=== PATIENT | female | born 1975 | race Caucasian/White ===

== ENCOUNTER 2018-06-14 16:24 | Emergency (ER) | payer MEDICAID, OTHER ==
[2018-06-14 16:59] LABS: PLATELET COUNT 304 10^3/uL (150-400)
[2018-06-14] MEDS ORDERED: NS 1,000 ML IV ONE (17:04)
[2018-06-14] MEDS ORDERED: LORazepam 2 MG/ML INJ IVP ONE (17:04)
--- NOTE | 2018-06-14 17:04 | EDPHY ---
H & P Stated Complaint: 1 MONTH INTERMITTENT L CHEST/ABD ARM PRESSURE Time Seen by Provider: 06/14/18 16:56 HPI/ROS: HPI: This is a 43-year-old female who presents with Chief Complaint: 1 MONTH INTERMITTENT L CHEST/ABD ARM PRESSURE Location: Left-sided neck, chest, arms Quality: Pressure Duration: 4-6 weeks Signs and Symptoms: + shortness of breath at rest, + shortness of breath on exertion, no cough, + chest pain, + palpitations, no lower extremity edema, no wheezing, no orthopnea, no paroxysmal nocturnal dyspnea, no fever, no injury/ trauma, no hemoptysis, no carpal pedal spasms Timing: Acute, intermittent episodes, worse at night when lying down Severity: Moderate Context: Patient has a history of hypothyroidism, chronic fatigue syndrome, currently on her menses, presents with complaints of left-sided neck, chest, arm pressure that is worse at night and when lying flat on her back. Patient reports that she feels that her heart races at times. Nothing makes this better or worse. She reports that she has not been taking her thyroid medication "for some time" for unknown reasons. She recently moved from [place] to [place] and this has been stressful to her. She does not use marijuana and tobacco. No recent long distance travel. No history of clotting disorders in the family. No history of cardiac disease in the family. Chest Pain is described as pressure like and nonradiating in nature. Denies diaphoresis, nausea, vomiting. Modifying Factors: None Comment: ROS: A comprehensive 10 system review of systems is otherwise negative aside from elements mentioned in the history of present illness. MEDICAL/SURGICAL/SOCIAL HISTORY: Medical history: Hypothyroidism, chronic fatigue syndrome, Currently on her menses. Surgical history: Denies Social history: Tobacco user, marijuana user. CONSTITUTIONAL: Well-developed, well-nourished, slightly anxious middle-aged white female, awake and alert, no obvious distress HEENT: Atraumatic and normocephalic, PERRL, EOMI. Nares patent; no rhinorrhea; no nasal mucosal edema. Tympanic membranes clear. Oropharynx clear, no exudate and moist pink mucosa. Airway patent. No lymphadenopathy. No meningismus. No carotid bruits. Cardiovascular: Normal S1/S2, regular rate, regular rhythm, without murmur rub or gallop. PULMONARY/CHEST: Symmetrical and nontender. Clear to auscultation bilaterally. Good air movement. No accessory muscle usage. ABDOMEN: Soft, nondistended, nontender, no rebound, no guarding, no peritoneal signs, no masses or organomegaly. No CVAT. EXTREMITIES: 2/2 pulses, strength 5/5, no deformities, no clubbing, no cyanosis or edema. NEUROLOGICAL: no focal neuro deficits. GCS 15. SKIN: Warm and dry, no erythema. no rash. Good capillary refill. Source: Patient Exam Limitations: No limitations - Personal History LMP (Females 10-55): Now Current Tetanus Diphtheria and Acellular Pertussis (TDAP): No - Medical/Surgical History Hx Asthma: No Hx Chronic Respiratory Disease: No Hx Diabetes: No Hx Cardiac Disease: No Hx Renal Disease: No Hx Cirrhosis: No Hx Alcoholism: No Hx HIV/AIDS: No Hx Splenectomy or Spleen Trauma: No Other PMH: THYROID ISSUES/CHRONIC FATIGUE - Social History Smoking Status: Current every day smoker Constitutional: Initial Vital Signs Temperature (C) 36.7 C 06/14/18 16:30 Heart Rate 94 06/14/18 16:30 Respiratory Rate 18 06/14/18 16:30 Blood Pressure 139/99 H 06/14/18 16:30 O2 Sat (%) 96 06/14/18 16:30 O2 Delivery Mode Room Air Allergies/Adverse Reactions: Penicillins Allergy (Mild, Verified 06/14/18 16:29) Rash Home Medications: Medication Instructions Recorded Nature Throid 06/14/18 Medical Decision Making - Diagnostics Imaging Results: Imaging Impressions Chest X-Ray 06/14/18 16:52 Impression: Query mild airways disease with no superimposed acute abnormality identified. ED Course/Re-evaluation: Vital signs reviewed and stable upon arrival. Placed on radiographer cardiac catheterization. IV access, laboratory studies, chest x-ray, EKG ordered 1710: EKG my read shows sinus tachycardia with a rate of 106 beats per minute with nonspecific ST changes but no acute ischemic changes, no heart block, no arrhythmias. 171: Notified by [employer] that troponin 0.00 1720: Labs reviewed. No signs of leukocytosis/anemia/platelet dysfunction/LEAH/ elevated LFTs/electrolyte imbalance/pancreatitis/VTE/uncontrolled thyroid disease. 1814: Repeat ECG ordered and my read with attending shows normal sinus rhythm with a rate of 63 beats per minute. No acute ischemic changes. No signs of pericarditis. [facility]. Discussed possibility of cardiology referral to determine if Holter monitor is needed. This patient was seen under the supervision of my secondary supervising physician. I evaluated care for this patient with attending. Discussed this patient with Dr. Blackman. Differential Diagnosis: Chest pain including but not limited to myocardial ischemia, pulmonary embolus, chest wall pain, pleural inflammation and pulmonary infectious causes. - Data Points Laboratory Results: Laboratory Results 06/14/18 16:47 06/14/18 16:47 06/14/18 06/14/18 06/14/18 16:52 16:47 16:47 WBC RBC Hgb Hct MCV MCH MCHC RDW Plt Count MPV Neut % (Auto) Lymph % (Auto) [place] % (Auto) Eos % (Auto) Baso % (Auto) Nucleat RBC Rel Count Absolute Neuts (auto) Absolute Lymphs (auto) Absolute Monos (auto) Absolute Eos (auto) Absolute Basos (auto) Absolute Nucleated RBC Immature Gran % Immature Gran # D-Dimer Sodium Potassium Chloride Carbon Dioxide Anion Gap BUN Creatinine Estimated GFR Glucose Calcium Magnesium 2.1 mg/dL mg/dL (1.6-2.3) Total Bilirubin 0.6 mg/dL mg/dL (0.1-1.4) Conjugated Bilirubin 0.4 mg/dL mg/dL (0.0-0.5) Unconjugated Bilirubin 0.2 mg/dL mg/dL (0.0-1.1) AST 23 IU/L IU/L (14-46) ALT 24 IU/L IU/L (9-52) Alkaline Phosphatase 54 IU/L IU/L (38-126) POC Troponin I 0.00 ng/mL ng/mL (0.00-0.08) Total Protein 7.1 g/dL g/dL (6.3-8.2) Albumin 4.4 g/dL g/dL (3.5-5.0) Lipase 114 IU/L IU/L (23-300) TSH 1.810 uIU/mL uIU/mL (0.465-4.680) Free T4 1.31 ng/dL ng/dL (0.59-2.19) Beta HCG, Qual NEGATIVE 02/19/19 02/19/19 02/19/19 16:47 16:47 16:47 WBC 6.23 10^3/uL 10^3/uL (3.80-9.50) RBC 4.91 10^6/uL 10^6/uL (4.18-5.33) Hgb 14.9 g/dL g/dL (12.6-16.3) Hct 44.0 % % (38.0-47.0) MCV 89.6 fL fL (81.5-99.8) MCH 30.3 pg pg (27.9-34.1) MCHC 33.9 g/dL g/dL (32.4-36.7) RDW 13.4 % % (11.5-15.2) Plt Count 304 10^3/uL 10^3/uL (150-400) MPV 10.0 fL fL (8.7-11.7) Neut % (Auto) 57.9 % % (39.3-74.2) Lymph % (Auto) 31.1 % % (15.0-45.0) [place] % (Auto) 9.5 % % (4.5-13.0) Eos % (Auto) 0.8 % % (0.6-7.6) Baso % (Auto) 0.5 % % (0.3-1.7) Nucleat RBC Rel Count 0.0 % % (0.0-0.2) Absolute Neuts (auto) 3.61 10^3/uL 10^3/uL (1.70-6.50) Absolute Lymphs (auto) 1.94 10^3/uL 10^3/uL (1.00-3.00) Absolute Monos (auto) 0.59 10^3/uL 10^3/uL (0.30-0.80) Absolute Eos (auto) 0.05 10^3/uL 10^3/uL (0.03-0.40) Absolute Basos (auto) 0.03 10^3/uL 10^3/uL (0.02-0.10) Absolute Nucleated RBC 0.00 10^3/uL 10^3/uL (0-0.01) Immature Gran % 0.2 % % (0.0-1.1) Immature Gran # 0.01 10^3/uL 10^3/uL (0.00-0.10) D-Dimer 0.41 ug/mLFEU ug/mLFEU (0.00-0.50) Sodium 135 mEq/L mEq/L (135-145) Potassium 3.8 mEq/L mEq/L (3.5-5.2) Chloride 107 mEq/L mEq/L (97-110) Carbon Dioxide 20 mEq/l L mEq/l (22-31) Anion Gap 8 mEq/L mEq/L (6-14) BUN 17 mg/dL mg/dL (7-23) Creatinine 0.6 mg/dL mg/dL (0.6-1.0) Estimated GFR > 60 Glucose 117 mg/dL H mg/dL (70-100) Calcium 9.4 mg/dL mg/dL (8.5-10.4) Magnesium Total Bilirubin Conjugated Bilirubin Unconjugated Bilirubin AST ALT Alkaline Phosphatase POC Troponin I Total Protein Albumin Lipase TSH Free T4 Beta HCG, Qual Medications Given: Discontinued Medications Sodium Chloride (Ns) 1,000 mls @ 0 mls/hr IV EDNOW ONE; Wide Open PRN Reason: Protocol Stop: 06/14/18 17:05 Last Admin: 06/14/18 17:14 Dose: 1,000 mls Lorazepam (Ativan Injection) 0.5 mg IVP EDNOW ONE Stop: 06/14/18 17:05 Last Admin: 06/14/18 17:14 Dose: 0.5 mg Point of Care Test Results: Chemistry 06/14/18 16:52 POC Troponin I 0.00 ng/mL ng/mL (0.00-0.08) Departure - Departure Disposition: Home, Routine, Self-Care Clinical Impression: Heart palpitations Condition: Good Instructions: Heart Palpitations (ED) Additional Instructions: Consume a minimum of 8-10 glasses of water or electrolyte fluid replacement drinks that include Gatorade, Powerade, Pedialyte. Refrain from drinking caffeine and smoking marijuana or tobacco as these can make your symptoms worse. Establish care at the [facility] and evaluate if Holter monitor/cardiology is needed. Take thyroid medicine as prescribed. Referrals: [facility],. [Clinic] - As per Instructions
[2018-06-14 18:48] VITALS: BP 103/77
--- NOTE | 2018-06-16 19:31 | CPEKG ---
Test Reason : OPEN Blood Pressure : / mmHG Vent. Rate : 063 BPM Atrial Rate : 063 BPM P-R Int : 143 ms QRS Dur : 089 ms QT Int : 420 ms P-R-T Axes : 070 047 045 degrees QTc Int : 430 ms Sinus rhythm Confirmed by Kristi Rome ([id number]) on 06/16/2018 7:30:54 PM Referred By: KRISTI ROME Confirmed By:Kristi Rome
--- NOTE | 2018-06-21 16:19 | ASDISCHSUM ---
Discharge Information Plan Status:Home with No Needs Medically Cleared to Leave: Discharge Date:06/14/2018 06:48 PM CM D/C Disposition: ADT D/C Disposition:Home, Routine, Self-Care Projected Discharge Date:06/14/2018 06:48 PM Transportation at D/C:None or Unknown Discharge Delay Reason: Follow-Up Date:06/14/2018 06:48 PM Discharge Slot: Final Diagnosis: Placement Information Patient Contact Information Contact Name:LORENA Relationship:Sister Address:[address] Work Phone: City:[place] Alternate Phone: [facility]/Zip Code:[place] [address] Email: Financial Information Financial Class:Medicaid Primary Plan Desc:[employer] Primary Plan Number:[id number] Secondary Plan Desc: Secondary Plan Number: Assessment Information Intervention Information Intervention Type:Post Acute Communication Date of Service:06/20/2018 02:15 PM Patient Type:Emergency Room Staff Member:SOL Parham, Suha Hours:0.25 Discipline:Representative Personal Service Severity: Comment:Received a CM Consult order requesting that CM reach out to pt and assist with gettin g a PCP and Cardiology follow-up. Pt [facility]; this CM called [facility] and they said pt's PCP is ISAEL Palma but that the pt hasn't been seen since last year. PC says the y will reach out to the pt to schedule a follow-up appt and assist with a cardiology follow-up as well. Pt's # [phone] provided to [facility] as they had a different one on file.
== END 2018-06-14 18:48 | disposition home or self-care (01) ==
DX: R00.2 Palpitations (principal); R07.89 Other chest pain; M54.2 Cervicalgia; R53.83 Other fatigue; E03.9 Hypothyroidism, unspecified; F17.200 Nicotine dependence, unspecified, uncomplicated
CPT/HCPCS: 84484-ER; 96374; J2060